=== PATIENT | female | born 1975 | race Two or more races ===

== ENCOUNTER → 2024-11-11 | Outpatient (CLI) | payer BC, SELFPAY ==
[2024-11-11 07:49] LABS: Collection Type, Urine Clean Catch
[2024-11-11 08:20] LABS: Basophils % (Auto) 1 % (0-2.5); Eosinophils # (Auto) 0.1 Thou/mm3 (0.0-0.5); Eosinophils % (Auto) 2 % (0-10); Hematocrit 40.2 % (36.0-46.0); Hemoglobin 14.1 g/dL (12.0-16.0); Immature Granulocytes % (Auto) 0 % (0-0); Immature Granulocytes Auto 0.02 Thou/mm3 (0.00-0.00); Lymphocytes # (Auto) 1.7 Thou/mm3 (1.0-4.8); Lymphocytes % (Auto) 24 % (10-50); Mean Corpuscular HGB Conc 35.1 g/dl (31.0-37.0); Mean Corpuscular Hemoglobin 30.5 pg (25.0-35.0); Mean Corpuscular Volume 87 fL (80-100); Monocytes # (Auto) 0.5 Thou/mm3 (0.0-0.8); Monocytes % (Auto) 7 % (0-12); Neutrophils # (Auto) 4.7 Thou/mm3 (1.8-7.7); Neutrophils % (Auto) 66 % (37-80); Nucleated Red Blood Cell % 0 /100 WBC (0); Platelet Count 305 Thou/mm3 (140-440); RDW Standard Deviation 37.9 fL (36.4-46.3); Red Blood Count 4.62 Miln/mm3 (4.00-5.20); White Blood Count 7.1 Thou/mm3 (3.6-11.0)
[2024-11-11 08:20] LABS: Bacteria,Urine 3+; Bilirubin,Urine Negative (Negative); Blood,Urine 2+ (Negative); Color,Urine Yellow (Lt Yel-Yel); Glucose, Urine Negative (Negative); Ketones,Urine Negative (Negative); Leukocyte Esterase,Urine Positive (Negative); Nitrite,Urine Negative (Negative); PH,Urine 5.5 (5.0-7.0); Protein,Urine Trace (Neg - Trace); RBC,Urine 9 /hpf (0-3); Specific Gravity,Urine 1.024 (1.001-1.035); Squamous Epithelial Cell,Urine 12 /hpf (0-5); Urobilinogen,Urine Negative mg/dL (0.0-1.0); WBC,Urine 18 /hpf (0-5)
[2024-11-11 08:29] LABS: Ferritin 9 ng/mL (7.3-270.7); Iron 68 mcg/dL (50-170); Percent Iron Saturation 19 % (20-55); Total Iron Binding Capacity 343 mcg/dL (250-425); Unsaturated Iron Binding 275 (225-295)
[2024-11-11 08:32] LABS: Vitamin B12 363 pg/mL (211-911); Vitamin D 25 Hydroxy Total 8.4 ng/mL (7.3-40.2)
[2024-11-11 08:42] LABS: Alanine Aminotransferase 9 U/L (10-49); Albumin, Serum 4.2 gm/dL (3.5-5.0); Albumin/Globulin Ratio 1.4 (1.2-2.2); Alkaline Phosphatase 68 U/L (46-116); Anion Gap 10 (7-16); BUN/Creatinine Ratio 11 Ratio (12-20); Bilirubin,Total 0.7 mg/dL (0.3-1.2); Blood Urea Nitrogen 9 mg/dL (9-23); Calcium 8.9 mg/dL (8.3-10.6); Calcium (Corrected) 8.9 mg/dL (8.5-10.1); Cardiac Risk Estimate 6.2 RATIO (3.7-5.6); Chloride 104 mMol/L (98-107); Cholesterol 320 mg/dL (132-200); Creatinine (Component) 0.8 mg/dL (0.6-1.3); Globulin 2.9 gm/dL (2.3-3.5); Glucose 93 mg/dL (74-106); HDL Cholesterol 52 mg/dL (40-60); LDL Cholesterol,Calculated 236 mg/dL (0-130); Osmolality,Calculated 278 (275-295); Potassium 3.7 mMol/L (3.4-5.1); Sodium 140 mMol/L (136-145); Total Protein 7.1 gm/dL (5.7-8.2); Triglycerides 162 mg/dL (30-150); eGFR > 60 See Note
[2024-11-11 08:51] LABS: Clarity,Urine Hazy (Clear/Hazy)
[2024-11-11 11:59] LABS: Cocci Serology, IgM Negative (Negative)
[2024-11-13 14:04] LABS: Cocci Serology, IgG Negative (Negative)
[2024-11-16 07:15] LABS: ANA Pattern NUCLEAR, SPECKLED; ANA Screen, IFA POSITIVE (NEGATIVE); Lyme Antibody Screen <0.90 INDEX
== END | disposition home or self-care (01) ==
LOC: COPL 06:40
PROVIDERS: PCP Family Medicine; Referring Provider Family Medicine; Visit Provider Family Medicine
DX: R53.82 Chronic fatigue, unspecified (principal)
CPT/HCPCS: 36415; 80053; 80061; 81001; 82306; 82607; 82728; 83540; 83550; 84443; 85025; 86038; 86331; 86618; 86635

== ENCOUNTER 2024-12-15 21:55 | Emergency (ER) | payer BC, SELFPAY ==
[2024-12-15 22:01] VITALS: BP 144/96; PULSE 110; RESP 18; TEMP 36.7; O2SAT 98
[2024-12-15 22:02] VITALS: BMI 29.9
[2024-12-15 22:07] VITALS: PULSE 110; RESP 18; O2SAT 98; BMI 29.9
--- NOTE | 2024-12-15 22:08 | EDRME_ITS ---
Rapid Medical Screening Exam [facility] Arrival date/time: 12/15/24 21:55 Chief Complaint: Chest Pain Vital signs: Vital Signs Temperature 98.0 F 12/15/24 22:01 Pulse Rate 110 H 12/15/24 22:01 Respiratory Rate 18 12/15/24 22:01 Blood Pressure 144/96 H 12/15/24 22:01 Pulse Oximetry (%) 98 12/15/24 22:01 Oxygen Delivery Method Room Air 12/15/24 22:01 [facility] Narrative: 49-year-old female with a remote history of DE and cardiac stenting in 2015. She is brought in by EMS for palpitations and shortness of breath that started 30 minutes prior to arrival. She also notes she has had some bilateral, ankle swelling over the last 3 to 4 days. Denies any syncope. No fevers or chills. No abdominal pain, nausea, vomiting. She states she does not take any medications. Work up intiated, medical screening exam complete.
--- NOTE | 2024-12-15 22:09 | XR_ITS ---
Examination: AP chest single view TECHNIQUE: AP portable upright chest single view Date and time: December 15, 2024 10:21 PM INDICATIONS: Cardiac palpitations chest pain shortness of breath today. FINDINGS: Normal heart size. Lungs are clear. The osseous structures are intact IMPRESSION: No active disease.
--- NOTE | 2024-12-15 22:23 | PD.EDCHEST ---
ED Chest Pain RME/HPI General Chief Complaint: Chest Pain Stated Complaint: PALPITATIONS Time Seen by Provider: 12/15/24 22:24 Arrival date/time: 12/15/24 21:55 RME / HPI RME / HPI narrative: 49-year-old female with a remote history of AK and cardiac stenting in 2016. She is brought in by EMS for palpitations and shortness of breath that started 30 minutes prior to arrival. She also notes she has had some bilateral, ankle swelling over the last 3 to 4 days. Denies any syncope. No fevers or chills. No abdominal pain, nausea, vomiting. She states she does not take any medications. Work up intiated, medical screening exam complete. ------- This section includes all my notes and documentations, including HPI, PE, and ED course. Damian Carrasco MD HPI: 49yo female with a history of AK s/p stent placement (2015) RAVIN from home presents to the ED for complaints of palpitations and chest pressure that started just prior to arrival. Patient woke up having palpitations and chest pressure. She has chronic nausea. No vomiting, cough, or abdominal pain. Patient took cayenne pepper which improved her chest pain. No other complaints reported. ROS: All negative except as documented in HPI. Physical Exam: General: Alert and oriented. Appears anxious. Eyes: Conjunctivae and lids clear. ENT: No nasal congestion. Neck: Supple. Heart: RRR. Lungs: No respiratory distress. Good air movement. No rhonchi, wheezing, rales. Abdomen: Soft and nontender. Normal bowel sounds. No distension. No rebound or guarding. Back: No CVA tenderness. Skin: Warm and dry. Neuro: Alert and oriented X 3. I reviewed EMS notes. I reviewed all diagnostic test results. My interpretation of the EKG is NSR with nonspecific ST-T changes. My interpretation of the chest x-ray is NAD. Blood tests remarkable for Magnesium 1.5. Urine tests unremarkable. At this point, diagnoses include anxiety and hypomagnesemia. I ordered ASA 324 mg, oral metoprolol 25 mg, and MgSO4 1 gram IV. Patient agreed only to MgSO4 1 gram IV. Discussed potential benefits and risks. Patient understood. She still declined ASA and metoprolol. Patient remained stable. Recommended more outpatient cardiac workup Based on my best medical judgment, made decision no further evaluation or treatment indicated at this time. Patient understands and agrees to the discharge instructions customized and printed, see below. Discharge instructions from Dr. Carrasco: 1. After extensive evaluation, there is no life-threatening condition. Such as heart attack or pulmonary embolism (blood clots in your lungs) or pneumothorax (collapsed lung). 2. Your symptoms may be due to underlying stress or anxiety or nerves. This is fairly common. 3. Your magnesium level was low today. Increase food rich in magnesium, such as green and leafy vegetables and almonds and cashews and peanuts. 4. See a private doctor on 12/17/2024. Ask to review all test results and official radiology reports, to make sure you receive all necessary follow-ups and monitoring. To make sure there is no serious underlying heart condition, ask to help you get more tests for your heart that cannot be done here in the ER. Such as Holter Monitor (cardiac monitoring at home from a day to even a month), heart stress test (on treadmill or with medication), echocardiogram (imaging of your heart structures), heart catherization (checking for blockages in your heart arteries), and a referral to see a Mechanical Integrity Engineer. 5. Seek immediate medical care with worsening or with any concerns. Damian Carrasco MD Related Data Home Medications ?Medication ?Instructions ?Recorded ?Confirmed aspirin 325 mg tablet 325 mg PO QDAY #0 tabs 01/26/16 07/15/23 carvedilol 3.125 mg tablet (Coreg) 3.125 mg PO BID #0 tabs 01/26/16 07/15/23 prasugrel HCl 10 mg tablet 10 mg PO QDAY #0 tabs 01/26/16 07/15/23 (Effient) Allergies Allergy/AdvReac Type Severity Reaction Status Date / Time atorvastatin Allergy Intermediate Anaphylaxis Verified 12/15/24 22:03 Review of Systems Review of Systems Systems Reviewed: All systems reviewed, normal except as documented Past Medical History Past Medical History CARDIAC: Positive Myocardial Infarction; Negative Congestive Heart Failure RESPIRATORY: Negative Chronic Obstructive Pulmonary Disease (COPD) GENITOURINARY: Negative Renal Disease ENDOCRINE: Negative Diabetes Mellitus Type 1 or Diabetes Mellitus Type 2 Surgical History SURGICAL: Positive Coronary Stent (2016) Social History SMOKING STATUS: Never smoker SUBSTANCE USE: does not use ED Exam Narrative Physical exam: As noted in HPI. Course Course Course Narrative: CXR is ordered for determining the etiology of chest pain. Quality Measures none Orders Category Date Time Status EKG (ED ONLY) *Do not use* NOW Care 12/15/24 22:27 Completed Saline [Insert IV] NOW Care 12/15/24 22:25 Completed Straight [In and Out Catheter] X1 Care 12/15/24 22:25 Completed EKG (ED Only) Stat Exams 12/15/24 22:27 Draft XR chest 1V Stat Exams 12/15/24 22:09 Completed Alcohol, Blood Medical Stat Lab 12/15/24 22:25 Completed BNP [B-Type Natriuretic Peptide] Stat Lab 12/15/24 22:25 Completed Bilirubin,Direct Stat Lab 12/15/24 22:25 Completed CBC [CBC] Stat Lab 12/15/24 22:25 Completed CMP [Comprehensive Metabolic Panel] Stat Lab 12/15/24 22:25 Completed D-Dimer Stat Lab 12/15/24 23:22 Completed Drug Screen,Urine Stat Lab 12/15/24 22:20 Completed Free T4 (Free Thyroxine) Stat Lab 12/15/24 22:25 Completed HCG,Qualitative Serum Stat Lab 12/15/24 22:25 Completed Magnesium Stat Lab 12/15/24 22:25 Completed TSH [Thyroid Stimulating Hormone] Stat Lab 12/15/24 22:25 Completed Troponin I Stat Lab 12/15/24 22:25 Completed UA, C/S IF [Urinalysis, C/S if Indicated] Stat Lab 12/15/24 22:20 Completed Aspirin Chew Med 12/15/24 22:25 Discontinued 324 mg PO X1 ONE Magnesium Sulfate 1 gm Ivpb [Magnesium Sulfate Ivpb] Med 12/15/24 23:16 Discontinued 1 gm in 100 ml IV X1 Metoprolol Tartrate [Lopressor] Med 12/15/24 22:25 Discontinued 25 mg PO X1 ONE Vital Signs Vital signs: Vital Signs Temperature 98.0 F 12/15/24 22:01 Pulse Rate 110 H 12/15/24 22:01 Respiratory Rate 18 12/15/24 22:01 Blood Pressure 144/96 H 12/15/24 22:01 Pulse Oximetry (%) 98 12/15/24 22:01 Oxygen Delivery Method Room Air 12/15/24 22:01 Chest Pain MDM Narrative MDM Narrative:: 49yo female with a history of AK s/p stent placement (2015) BIBA from home presents to the ED for complaints of palpitations and chest pressure that started just prior to arrival. Patient woke up having palpitations and chest pressure. She has chronic nausea. No vomiting, cough, or abdominal pain. Patient took cayenne pepper which improved her chest pain. No other complaints reported. Patient data External records reviewed:: [facility] previous records (Per chart review, patient was seen here on 07/15/23 for mild dehydration.) and EMS form Clinical information provided by:: patient Social determinants that could affect healthcare access:: none Patient has the following chronic illnesses:: none How is presenting disease/condition affected by chronic disease/condition?: no chronic disease Evaluation data The following diagnostics were reviewed and interpreted by me:: lab results, radiology exam(s) and EKG tracing(s) (My interpretation of the EKG is: Sinus rhythm (87 bpm) with nonspecific ST-T changes. Damian Carrasco MD) Lab and/or radiology exams considered but not ordered:: none Interpretation Summary: I reviewed all diagnostic test results. My interpretation of the EKG is NSR with nonspecific ST-T changes. My interpretation of the chest x-ray is NAD. Blood tests remarkable for Magnesium 1.5. Urine tests unremarkable. Medications / Prescriptions Medications or Prescriptions considered but not ordered:: none Medication administrations:: Medication Administration History Discontinued Medications Aspirin (Aspirin 81 Mg Chew) 324 mg PO X1 ONE Stop: 12/15/24 22:26 Last Admin: 12/15/24 22:40 Dose: Not Given Documented By: CB Non-Admin Reason: Patient Refused Magnesium Sulfate/Dextrose (Magnesium Sulfate Ivpb) 1 gm in 100 mls @ 100 mls/hr IV X1 ONE Stop: 12/16/24 00:15 Last Infusion: 12/16/24 00:41 Dose: Infused Documented By: Admin: 12/15/24 23:32 Dose: 100 mls/hr Documented By: JOYCE Metoprolol Tartrate (Metoprolol Tartrate 25 Mg Tablet) 25 mg PO X1 ONE Stop: 12/15/24 22:26 Last Admin: 12/15/24 22:41 Dose: Not Given Documented By: CB Non-Admin Reason: Patient Refused I ordered ASA 324 mg, oral metoprolol 25 mg, and MgSO4 1 gram IV. Patient agreed only to MgSO4 1 gram IV. Discussed potential benefits and risks. Patient understood. She still declined ASA and metoprolol. Consultations Consultation(s) initiated? (list below): No Diagnosis Chest Pain Differential Diagnosis: pneumothorax, stable angina, unstable angina pectoris, atypical chest pain, st elevation myocardial infarction, costochondritis and other (Anxiety) Most likely diagnosis given after review of the tests above:: Anxiety Admission Indicated Admission indicated?: not indicated Explain why admission is indicated or not indicated:: With significant improvement and no condition needing emergent intervention, there was no indication for admission. Admission Request Was there a request for admission?: No Disposition Plan Disposition Plan: Discharge Discharge Attestation Discharge Attestation: The patient and all family members were given an opportunity to ask questions and understood the discharge instructions. Discharge instructions specifically effects, indications for sooner follow up or return to the emergency department, and the expected course of current diagnosis. Patient condition: Stable Discharge Plan Plan Patient Disposition: HOME (Self Care) Prescriptions/Referrals Prescriptions/Med Rec: No Action aspirin 325 MG tablet 325 mg PO QDAY Qty: 0 carvedilol [Coreg] 3.125 MG tablet 3.125 mg PO BID Qty: 0 prasugrel HCl [Effient] 10 MG tablet 10 mg PO QDAY Qty: 0 Referrals: No Primary/Family,Physician [Primary Care Provider] - In 1 week Problem List Clinical Impression: Palpitations Patient/Caregiver Discharge Instructions Discharge Activity: activity as tolerated Education Materials: ED Anxiety Reaction, ED Palpitations, ED Panic Attack Additional Instructions: Discharge instructions from Dr. Carrasco: 1. After extensive evaluation, there is no life-threatening condition.? Such as heart attack or pulmonary embolism (blood clots in your lungs) or pneumothorax (collapsed lung). 2. Your symptoms may be due to underlying stress or anxiety or nerves.? This is fairly common. 3. Your magnesium level was low today. Increase food rich in magnesium, such as green and leafy vegetables and almonds and cashews and peanuts. 4. See a private doctor on 12/17/2024. Ask to review all test results and official radiology reports, to make sure you receive all necessary follow-ups and monitoring. To make sure there is no serious underlying heart condition, ask to help you get more tests for your heart that cannot be done here in the ER.? Such as Holter Monitor (cardiac monitoring at home from a day to even a month), heart stress test (on treadmill or with medication), echocardiogram (imaging of your heart structures), heart catherization (checking for blockages in your heart arteries), and a referral to see a Mechanical Integrity Engineer. 5. Seek immediate medical care with worsening or with any concerns.?? Print Language: [place] Stand Alone Forms: Catherine Award Info., Patient Portal Info Letter
--- NOTE | 2024-12-15 22:27 | EKG_ITS ---
[facility] Test Date: 2024-12-15 Pat Name: JERRY ANGEL Department: Room: - Gender: Female Supervisor [employer]: : 1975 Requested By: Damian Melo Order Number: [id number] Reading MD: Damian Melo Measurements Intervals [place] Rate: 87 P: 26 MA: 176 QRS: 26 QRSD: 88 T: 44 QT: 379 QTc: 458 Interpretive Statements SINUS RHYTHM WITH SINUS ARRHYTHMIA LOW QRS VOLTAGE IN PRECORDIAL LEADS [QRS DEFLECTION < 1.0 mV IN CHEST LEADS] Compared to ECG 07/15/2023 13:32:12 Low QRS voltage now present T-wave abnormality no longer present /store/[id number].pdf
[2024-12-15 22:29] LABS: Collection Type, Urine Voided
[2024-12-15 22:38] LABS: Basophils # (Auto) 0.1 Thou/mm3 (0.0-0.2); Basophils % (Auto) 1 % (0-2.5); Eosinophils # (Auto) 0.3 Thou/mm3 (0.0-0.5); Eosinophils % (Auto) 4 % (0-10); Hematocrit 40.5 % (36.0-46.0); Hemoglobin 14.4 g/dL (12.0-16.0); Immature Granulocytes Auto 0.01 Thou/mm3 (0.00-0.00); Lymphocytes # (Auto) 3.2 Thou/mm3 (1.0-4.8); Lymphocytes % (Auto) 40 % (10-50); Mean Corpuscular HGB Conc 35.6 g/dl (31.0-37.0); Mean Corpuscular Hemoglobin 30.3 pg (25.0-35.0); Mean Corpuscular Volume 85 fL (80-100); Monocytes # (Auto) 0.8 Thou/mm3 (0.0-0.8); Monocytes % (Auto) 10 % (0-12); Neutrophils # (Auto) 3.7 Thou/mm3 (1.8-7.7); Neutrophils % (Auto) 46 % (37-80); Nucleated Red Blood Cell # 0.00 Thou/mm3 (0.00-0.00); Nucleated Red Blood Cell % 0 /100 WBC (0); Platelet Count 298 Thou/mm3 (140-440); RDW Standard Deviation 36.2 fL (36.4-46.3); Red Blood Count 4.75 Miln/mm3 (4.00-5.20); White Blood Count 8.0 Thou/mm3 (3.6-11.0)
[2024-12-15 22:47] LABS: Bilirubin,Urine Negative (Negative); Blood,Urine Negative (Negative); Clarity,Urine Clear (Clear/Hazy); Color,Urine Colorless (Lt Yel-Yel); Culture Indicated,Urine Not Indicated; Glucose, Urine Negative (Negative); Ketones,Urine Negative (Negative); Leukocyte Esterase,Urine Positive (Negative); Nitrite,Urine Negative (Negative); PH,Urine 6.5 (5.0-7.0); Protein,Urine Negative (Neg - Trace); RBC,Urine < 1 /hpf (0-3); Specific Gravity,Urine 1.002 (1.001-1.035); Squamous Epithelial Cell,Urine < 1 /hpf (0-5); Urobilinogen,Urine Negative mg/dL (0.0-1.0); WBC,Urine < 1 /hpf (0-5)
[2024-12-15 22:53] LABS: Amphetamine/Methamp Scrn,U Negative (Negative); Barbiturate Screen,Urine Negative (Negative); Benzodiazepines Screen,Urine Negative (Negative); Benzoylecgonine Screen, Ur Negative (Negative); Fentanyl Screen,Urine Negative (Negative); Opiate Screen,Urine Negative (Negative); THC Screen,Urine Negative (Negative)
[2024-12-15 22:58] LABS: HCG,Qualitative Serum Negative
[2024-12-15 23:02] LABS: B-Type Natriuretic Peptide < 20 pg/mL (0-100)
[2024-12-15 23:09] LABS: Alanine Aminotransferase < 7 U/L (10-49); Albumin, Serum 4.2 gm/dL (3.5-5.0); Albumin/Globulin Ratio 1.3 (1.2-2.2); Alcohol, Blood Medical < 3.0 mg/dL (0-10.0); Alkaline Phosphatase 71 U/L (46-116); Anion Gap 11 (7-16); Aspartate Amino Transferase 13 U/L (0-34); BUN/Creatinine Ratio 15 Ratio (12-20); Bilirubin,Direct 0.1 mg/dL (0.0-0.3); Bilirubin,Total 0.6 mg/dL (0.3-1.2); Blood Urea Nitrogen 12 mg/dL (9-23); Calcium 8.8 mg/dL (8.3-10.6); Calcium (Corrected) 8.8 mg/dL (8.5-10.1); Carbon Dioxide 20.8 mMol/L (20.0-31.0); Chloride 107 mMol/L (98-107); Creatinine (Component) 0.8 mg/dL (0.6-1.3); Estimated Creatinine Clearance 90.8 mL/min (>60); Free T4 (Free Thyroxine) 1.16 ng/dL (0.89-1.76); Globulin 3.3 gm/dL (2.3-3.5); Glucose 104 mg/dL (74-106); Magnesium 1.5 mg/dL (1.6-2.6); Osmolality,Calculated 277 (275-295); Potassium 3.7 mMol/L (3.4-5.1); Sodium 139 mMol/L (136-145); Thyroid Stimulating Hormone 7.94 uIU/mL (0.55-4.78); Total Protein 7.5 gm/dL (5.7-8.2); Troponin I < 0.002 ng/mL (0.0-0.045); eGFR > 60 See Note
[2024-12-15 23:35] VITALS: BP 132/85; PULSE 85; RESP 13; TEMP 36.8; O2SAT 97
[2024-12-15 23:59] LABS: D-Dimer < 250 ng/mL (<600)
[2024-12-16 00:41] VITALS: BP 114/81; PULSE 76; RESP 16; TEMP 37; O2SAT 95
== END 2024-12-16 00:42 | disposition home or self-care (01) ==
PROVIDERS: Physician Assistant Medical; Emergency Provider Emergency Medicine
DX: R00.2 Palpitations (principal)
CPT/HCPCS: 36415; 71045; 80053; 80307; 80320; 81001; 82248; 83735; 83880; 84439; 84443; 84484; 84703; 85025; 85379; 93005; 96365; 99284; J3475; G0480

== ENCOUNTER → 2025-01-11 | Outpatient (CLI) | payer BC, SELFPAY ==
[2025-01-11 09:58] LABS: Basophils # (Auto) 0.1 Thou/mm3 (0.0-0.2); Basophils % (Auto) 1 % (0-2.5); Eosinophils # (Auto) 0.2 Thou/mm3 (0.0-0.5); Eosinophils % (Auto) 3 % (0-10); Hematocrit 41.1 % (36.0-46.0); Hemoglobin 14.3 g/dL (12.0-16.0); Immature Granulocytes Auto 0.02 Thou/mm3 (0.00-0.00); Lymphocytes # (Auto) 2.1 Thou/mm3 (1.0-4.8); Lymphocytes % (Auto) 31 % (10-50); Mean Corpuscular HGB Conc 34.8 g/dl (31.0-37.0); Mean Corpuscular Hemoglobin 31.0 pg (25.0-35.0); Mean Corpuscular Volume 89 fL (80-100); Monocytes # (Auto) 0.5 Thou/mm3 (0.0-0.8); Monocytes % (Auto) 8 % (0-12); Neutrophils # (Auto) 4.0 Thou/mm3 (1.8-7.7); Neutrophils % (Auto) 58 % (37-80); Nucleated Red Blood Cell # 0.00 Thou/mm3 (0.00-0.00); Nucleated Red Blood Cell % 0 /100 WBC (0); Platelet Count 219 Thou/mm3 (140-440); RDW Standard Deviation 37.8 fL (36.4-46.3); Red Blood Count 4.62 Miln/mm3 (4.00-5.20); White Blood Count 7.0 Thou/mm3 (3.6-11.0)
[2025-01-11 10:26] LABS: Vitamin B12 306 pg/mL (211-911); Vitamin D 25 Hydroxy Total 7.2 ng/mL (7.3-40.2)
[2025-01-11 10:35] LABS: Glucose Estimated Average 105 mg/dL (80-131); Hemoglobin A1C 5.3 % Hgb (4.8-6.0)
[2025-01-11 13:17] LABS: Alanine Aminotransferase < 7 U/L (10-49); Albumin, Serum 4.1 gm/dL (3.5-5.0); Albumin/Globulin Ratio 1.4 (1.2-2.2); Alkaline Phosphatase 70 U/L (46-116); Anion Gap 10 (7-16); Aspartate Amino Transferase 13 U/L (0-34); BUN/Creatinine Ratio 9 Ratio (12-20); Bilirubin,Total 0.5 mg/dL (0.3-1.2); Blood Urea Nitrogen 9 mg/dL (9-23); Calcium 9.0 mg/dL (8.3-10.6); Calcium (Corrected) 9.0 mg/dL (8.5-10.1); Carbon Dioxide 25.4 mMol/L (20.0-31.0); Cardiac Risk Estimate 6.7 RATIO (3.7-5.6); Chloride 106 mMol/L (98-107); Cholesterol 337 mg/dL (132-200); Creatinine (Component) 1.0 mg/dL (0.6-1.3); Free T4 (Free Thyroxine) 1.15 ng/dL (0.89-1.76); Globulin 2.9 gm/dL (2.3-3.5); Glucose 93 mg/dL (74-106); HDL Cholesterol 50 mg/dL (40-60); LDL Cholesterol,Calculated 253 mg/dL (0-130); Magnesium 1.4 mg/dL (1.6-2.6); Osmolality,Calculated 279 (275-295); Potassium 3.4 mMol/L (3.4-5.1); Sodium 141 mMol/L (136-145); Thyroid Stimulating Hormone 1.81 uIU/mL (0.55-4.78); Total Protein 7.0 gm/dL (5.7-8.2); Triglycerides 171 mg/dL (30-150); eGFR > 60 See Note
== END | disposition home or self-care (01) ==
PROVIDERS: PCP Family Medicine; Referring Provider Family Medicine; Visit Provider Family Medicine
DX: R53.83 Other fatigue (principal)
CPT/HCPCS: 36415; 80053; 80061; 82306; 82607; 83036; 83735; 84439; 84443; 85025

== ENCOUNTER → 2025-01-22 | Outpatient (CLI) | payer BC, SELFPAY ==
[2025-01-22 07:36] LABS: Collection Type, Urine Clean Catch
[2025-01-22 08:18] LABS: Basophils # (Auto) 0.0 Thou/mm3 (0.0-0.2); Basophils % (Auto) 0 % (0-2.5); Eosinophils # (Auto) 0.2 Thou/mm3 (0.0-0.5); Eosinophils % (Auto) 3 % (0-10); Hematocrit 41.6 % (36.0-46.0); Hemoglobin 14.0 g/dL (12.0-16.0); Immature Granulocytes Auto 0.01 Thou/mm3 (0.00-0.00); Lymphocytes # (Auto) 1.7 Thou/mm3 (1.0-4.8); Lymphocytes % (Auto) 32 % (10-50); Mean Corpuscular HGB Conc 33.7 g/dl (31.0-37.0); Mean Corpuscular Hemoglobin 30.2 pg (25.0-35.0); Mean Corpuscular Volume 90 fL (80-100); Monocytes # (Auto) 0.5 Thou/mm3 (0.0-0.8); Monocytes % (Auto) 9 % (0-12); Neutrophils # (Auto) 3.0 Thou/mm3 (1.8-7.7); Neutrophils % (Auto) 56 % (37-80); Nucleated Red Blood Cell # 0.00 Thou/mm3 (0.00-0.00); Nucleated Red Blood Cell % 0 /100 WBC (0); Platelet Count 296 Thou/mm3 (140-440); RDW Standard Deviation 39.1 fL (36.4-46.3); Red Blood Count 4.64 Miln/mm3 (4.00-5.20); White Blood Count 5.4 Thou/mm3 (3.6-11.0)
[2025-01-22 08:24] LABS: Glucose Estimated Average 105 mg/dL (80-131); Hemoglobin A1C 5.3 % Hgb (4.8-6.0)
[2025-01-22 08:32] LABS: Bilirubin,Urine Negative (Negative); Blood,Urine 2+ (Negative); Color,Urine Yellow (Lt Yel-Yel); Glucose, Urine Negative (Negative); Ketones,Urine Negative (Negative); Leukocyte Esterase,Urine Positive (Negative); Nitrite,Urine Negative (Negative); PH,Urine 5.5 (5.0-7.0); Protein,Urine Negative (Neg - Trace); RBC,Urine 10 /hpf (0-3); Specific Gravity,Urine 1.025 (1.001-1.035); Squamous Epithelial Cell,Urine 9 /hpf (0-5); Urobilinogen,Urine Negative mg/dL (0.0-1.0); WBC,Urine 7 /hpf (0-5)
[2025-01-22 08:36] LABS: Folate 17.48 ng/mL (>5.38); Vitamin B12 340 pg/mL (211-911); Vitamin D 25 Hydroxy Total 10.1 ng/mL (7.3-40.2)
[2025-01-22 09:09] LABS: Clarity,Urine Hazy (Clear/Hazy)
[2025-01-22 09:10] LABS: Alanine Aminotransferase < 7 U/L (10-49); Albumin, Serum 4.3 gm/dL (3.5-5.0); Albumin/Globulin Ratio 1.3 (1.2-2.2); Alkaline Phosphatase 74 U/L (46-116); Anion Gap 10 (7-16); Aspartate Amino Transferase 13 U/L (0-34); BUN/Creatinine Ratio 11 Ratio (12-20); Bilirubin,Total 0.7 mg/dL (0.3-1.2); Blood Urea Nitrogen 9 mg/dL (9-23); Calcium 9.3 mg/dL (8.3-10.6); Calcium (Corrected) 9.3 mg/dL (8.5-10.1); Carbon Dioxide 25.5 mMol/L (20.0-31.0); Chloride 103 mMol/L (98-107); Creatinine (Component) 0.8 mg/dL (0.6-1.3); Free T4 (Free Thyroxine) 1.15 ng/dL (0.89-1.76); Globulin 3.3 gm/dL (2.3-3.5); Glucose 90 mg/dL (74-106); Osmolality,Calculated 274 (275-295); Potassium 4.0 mMol/L (3.4-5.1); Sodium 138 mMol/L (136-145); Thyroid Stimulating Hormone 1.89 uIU/mL (0.55-4.78); Total Protein 7.6 gm/dL (5.7-8.2); Uric Acid 4.9 mg/dL (3.1-7.8); eGFR > 60 See Note
[2025-01-22 09:43] LABS: Sed Rate (ESR) 22 mm/hr (0-20)
[2025-01-22 09:55] LABS: C-Reactive Protein < 0.5 mg/dL (0.0-0.9); Free T3 3.3 pg/mL (2.3-4.2)
[2025-01-22 15:56] LABS: RA Screen Negative (Negative)
[2025-01-27 06:33] LABS: ANA Pattern NUCLEAR, SPECKLED; ANA Screen, IFA POSITIVE (NEGATIVE); ANA Titer 1:320 titer
== END | disposition home or self-care (01) ==
LOC: COPL 06:41
PROVIDERS: PCP Nurse Practitioner; Referring Provider Nurse Practitioner; Visit Provider Nurse Practitioner
DX: Z13.1 Encounter for screening for diabetes mellitus (principal); R53.83 Other fatigue; M25.50 Pain in unspecified joint
CPT/HCPCS: 36415; 80053; 81001; 82306; 82607; 82746; 83036; 84439; 84443; 84481; 84550; 85025; 85652; 86038; 86140; 86430

== ENCOUNTER → 2025-03-29 | Outpatient (CLI) | payer BC, SELFPAY ==
--- NOTE | 2025-03-29 15:35 | XR_ITS ---
Examination: Bilateral hands, 6 views. Technique: AP, Oblique, Lateral each hand total 6 views Date and time of exam: March 29, 2025, 1557 hours INDICATIONS: Joint pain, months,, family history, mother, brother rheumatoid arthritis Findings: Mild extra-articular bone demineralization No fracture or dislocation involving either hand No erosive or other significant arthritic change involving either hand No opaque foreign bodies IMPRESSION: No erosive or other significant arthritic change
--- NOTE | 2025-03-29 15:35 | XR_ITS ---
Examination: Foot bilateral, 6 views Technique: AP, oblique, lateral views of each foot total 6 views Date and time of exam: March 29, 2025, 1557 hours INDICATIONS: Foot pain months, family history of rheumatoid arthritis, mother brother FINDINGS: Mild osteopenia. 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
[2025-03-29 17:05] LABS: Misc Send Out* See Sep Rpt
[2025-03-29 17:37] LABS: Collection Type, Urine Clean Catch
[2025-03-29 18:04] LABS: Bilirubin,Urine Negative (Negative); Blood,Urine 2+ (Negative); Clarity,Urine Clear (Clear/Hazy); Color,Urine Lt-Yellow (Lt Yel-Yel); Glucose, Urine Negative (Negative); Ketones,Urine Negative (Negative); Leukocyte Esterase,Urine Positive (Negative); Nitrite,Urine Negative (Negative); PH,Urine 5.5 (5.0-7.0); Protein,Urine Negative (Neg - Trace); RBC,Urine 6 /hpf (0-3); Specific Gravity,Urine 1.021 (1.001-1.035); Squamous Epithelial Cell,Urine 2 /hpf (0-5); Urobilinogen,Urine Negative mg/dL (0.0-1.0); WBC,Urine 4 /hpf (0-5)
[2025-03-29 18:05] LABS: Basophils # (Auto) 0.0 Thou/mm3 (0.0-0.2); Basophils % (Auto) 1 % (0-2.5); Eosinophils # (Auto) 0.2 Thou/mm3 (0.0-0.5); Eosinophils % (Auto) 2 % (0-10); Hematocrit 41.1 % (36.0-46.0); Hemoglobin 13.7 g/dL (12.0-16.0); Immature Granulocytes Auto 0.02 Thou/mm3 (0.00-0.00); Lymphocytes # (Auto) 2.4 Thou/mm3 (1.0-4.8); Lymphocytes % (Auto) 31 % (10-50); Mean Corpuscular HGB Conc 33.3 g/dl (31.0-37.0); Mean Corpuscular Hemoglobin 29.7 pg (25.0-35.0); Mean Corpuscular Volume 89 fL (80-100); Monocytes # (Auto) 0.7 Thou/mm3 (0.0-0.8); Monocytes % (Auto) 9 % (0-12); Neutrophils # (Auto) 4.4 Thou/mm3 (1.8-7.7); Neutrophils % (Auto) 58 % (37-80); Nucleated Red Blood Cell # 0.00 Thou/mm3 (0.00-0.00); Nucleated Red Blood Cell % 0 /100 WBC (0); Platelet Count 331 Thou/mm3 (140-440); RDW Standard Deviation 37.4 fL (36.4-46.3); Red Blood Count 4.62 Miln/mm3 (4.00-5.20); White Blood Count 7.6 Thou/mm3 (3.6-11.0)
[2025-03-29 18:58] LABS: Sed Rate (ESR) 27 mm/hr (0-20)
[2025-03-29 20:49] LABS: Alanine Aminotransferase < 7 U/L (10-49); Aspartate Amino Transferase 15 U/L (0-34); C-Reactive Protein < 0.5 mg/dL (0.0-0.9); Creatine Kinase 57 U/L (34-171); Creatinine (Component) 0.9 mg/dL (0.6-1.3); Hepatitis B Surface Antigen Non Reactive (Non React); Uric Acid 4.9 mg/dL (3.1-7.8); eGFR > 60 See Note
[2025-03-30 14:28] LABS: RA Screen Negative (Negative)
[2025-04-04 22:04] LABS: Cardiolipin Ab IgA 6.4 APL-U/mL; Cardiolipin Ab IgG <2.0 GPL-U/mL; HCV RNA, PCR <15 NOT DETECTED IU/mL; Sjogren's antibody (SS-A) <1.0 NEG AI (<1.0 NEGATIVE); Sm Antibody <1.0 NEG AI (<1.0 NEGATIVE)
[2025-04-05 07:05] LABS: ANA Pattern NUCLEAR, SPECKLED; ANA Screen, IFA POSITIVE (NEGATIVE); ANA Titer 1:320 titer; B2-Glycoprotein I Ab IgA 5.2 U/mL; B2-Glycoprotein I Ab IgG <2.0 U/mL; B2-Glycoprotein I Ab IgM 2.5 U/mL; CCP Antibody (IgG)* <16 Units; Cardiolipin Ab IgM 2.9 MPL-U/mL; DNA (ds) Antibody* 57 IU/mL; HCV RNA, PCR Log IU <1.18 NOT DETECTED Log IU/mL; Phos.Serine Ab IgG <9 U (< OR = 30); Phos.Serine Ab IgM 14 U (< OR = 30); Scl-70 Antibody* <1.0 NEG AI (<1.0 NEGATIVE); Sjogren's Antibody (SS-B) <1.0 NEG AI (<1.0 NEGATIVE); Sm/RNP Antibody <1.0 NEG AI (<1.0 NEGATIVE)
== END | disposition home or self-care (01) ==
LOC: CDIM 15:33 → COPL 16:30
PROVIDERS: PCP Internal Medicine Rheumatology; Referring Provider Internal Medicine Rheumatology; Visit Provider Radiology Diagnostic Radiology
DX: M79.642 Pain in left hand (principal); M79.641 Pain in right hand; M21.612 Bunion of left foot; M21.611 Bunion of right foot; M19.072 Primary osteoarthritis, left ankle and foot; M19.071 Primary osteoarthritis, right ankle and foot; M77.32 Calcaneal spur, left foot; M25.50 Pain in unspecified joint
CPT/HCPCS: 36415; 73130; 73630; 81001; 82550; 82565; 84450; 84460; 84550; 85025; 85652; 86038; 86140; 86146; 86147; 86148; 86200; 86225; 86235; 86430; 87340; 87522

== ENCOUNTER → 2025-04-08 | Outpatient (CLI) | payer BC, SELFPAY ==
[2025-04-08 07:06] LABS: Quantiferon-TB* See Sep Rpt
== END | disposition home or self-care (01) ==
LOC: COPL 06:36
PROVIDERS: PCP Nurse Practitioner; Referring Provider Internal Medicine Rheumatology; Visit Provider Internal Medicine Rheumatology
DX: M25.50 Pain in unspecified joint (principal)
CPT/HCPCS: 86480

== ENCOUNTER 2025-05-04 09:25 | Emergency (ER) | payer BC, SELFPAY ==
--- NOTE | 2025-05-04 09:29 | EKG_ITS ---
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
[2025-05-04 09:33] VITALS: BP 148/95; PULSE 132; RESP 24; TEMP 36.5; O2SAT 97
--- NOTE | 2025-05-04 09:46 | XR_ITS ---
EXAMINATION: AP chest single view TECHNIQUE: AP portable upright chest single view Date and time: May 04, 2025, 0946 hours INDICATIONS: History of myocardial infarct with blurred vision onset today. FINDINGS: Normal heart size No pneumonia or pulmonary edema Prominent osteopenia IMPRESSION: No pneumonia or pulmonary edema
[2025-05-04 09:48] VITALS: BMI 29.9
[2025-05-04 09:50] VITALS: PULSE 116
[2025-05-04 10:00] VITALS: PULSE 109
--- NOTE | 2025-05-04 10:18 | XR_ITS ---
Examination: CT brain head without contrast. 2-D sagittal coronal reconstructions Date and time of exam: April 04, 2025, 10:47 a.m. INDICATIONS: Onset generalized head pain and blurry vision today CTDI: vol (mGy): 45.9 DLP: (mGycm): 887 Technique: Multiple CT axial sections of the brain have been obtained, 5 mm slice thickness. Contrast has not been administered. 2-D sagittal, coronal reconstructions have been obtained Low dose protocols were performed. One or more of the following dose reduction techniques were used; automated exposure control, adjustment of the mA and/or KV according to patient size, use of iterative reconstruction technique. Findings: No significant ventricular enlargement. Significant right maxillary sinus disease Intra-axial or extra-axial hemorrhage density is not seen. No mass effect or midline shift Basal cisterns are not remarkable. Fourth ventricle is midline. Cranial vault intact. Impression: Negative for acute hemorrhage, mass effect or midline shift If symptoms persist, consider brain MRI MRA without contrast follow-up
[2025-05-04 10:26] LABS: Basophils # (Auto) 0.0 Thou/mm3 (0.0-0.2); Basophils % (Auto) 1 % (0-2.5); Eosinophils # (Auto) 0.1 Thou/mm3 (0.0-0.5); Eosinophils % (Auto) 2 % (0-10); Hematocrit 42.6 % (36.0-46.0); Hemoglobin 14.5 g/dL (12.0-16.0); Immature Granulocytes Auto 0.01 Thou/mm3 (0.00-0.00); Lymphocytes # (Auto) 1.3 Thou/mm3 (1.0-4.8); Lymphocytes % (Auto) 22 % (10-50); Mean Corpuscular HGB Conc 34.0 g/dl (31.0-37.0); Mean Corpuscular Hemoglobin 29.9 pg (25.0-35.0); Mean Corpuscular Volume 88 fL (80-100); Monocytes # (Auto) 0.5 Thou/mm3 (0.0-0.8); Monocytes % (Auto) 9 % (0-12); Neutrophils # (Auto) 3.9 Thou/mm3 (1.8-7.7); Neutrophils % (Auto) 66 % (37-80); Nucleated Red Blood Cell # 0.00 Thou/mm3 (0.00-0.00); Nucleated Red Blood Cell % 0 /100 WBC (0); Platelet Count 303 Thou/mm3 (140-440); RDW Standard Deviation 38.3 fL (36.4-46.3); Red Blood Count 4.85 Miln/mm3 (4.00-5.20); White Blood Count 5.9 Thou/mm3 (3.6-11.0)
[2025-05-04 10:44] LABS: B-Type Natriuretic Peptide < 20 pg/mL (0-100)
[2025-05-04 10:50] LABS: INR 0.9 (0.9-1.3); Partial Thromboplastin Time 26.3 Seconds (22.0-36.0); Prothrombin Time 9.9 Seconds (9.0-12.2)
--- NOTE | 2025-05-04 10:51 | PD.EDEYE ---
ED Eye Problem RME/HPI General Chief complaint: Chest Pain Stated complaint: CHEST PAIN,BLURRED VISION R) EYE,HEART FLUTTERING Time Seen by Provider: 05/04/25 09:46 Arrival date/time: 05/04/25 09:25 RME / HPI RME / HPI Narrative: 50 year old female presents to the ED for evaluation of vision changes beginning suddenly at ~ 7:50-8:00 am today. Reports this morning she felt at her usual state of health and was working with a client. States after sitting down to chart on the computer, she noticed her vision had changed. Reports there to be empty spots in the center of her vision with a blue light just above said empty spots, though only noted to be on the right eye. States if she covered her right eye the left eye would have blurred vision. Accompanied by a sudden onset of headache located to the right side and room-spinning dizziness. States the blue light she was seeing resolved after about 1 hour though vision is still blurred and headache persists. Patient mentioned for the last 6 months on/off she will see colors first thing after waking up followed by nausea and room-spinning dizziness. Also reports for the last several years she has had unexplained on/off low-grade fevers, body aches, episodes of shortness of breath, and difficulty swallowing. States she is being following by a survey research manager in [place], [place] and are testing her for autoimmune disorders. Denies use of corrective lenses. Related Data Home Medications ?Medication ?Instructions ?Recorded ?Confirmed aspirin 325 mg tablet 325 mg PO QDAY #0 tabs 01/26/16 07/15/23 carvedilol 3.125 mg tablet (Coreg) 3.125 mg PO BID #0 tabs 01/26/16 07/15/23 prasugrel HCl 10 mg tablet 10 mg PO QDAY #0 tabs 01/26/16 07/15/23 (Effient) Allergies Allergy/AdvReac Type Severity Reaction Status Date / Time atorvastatin Allergy Intermediate Anaphylaxis Verified 05/04/25 09:27 Review of Systems Review of Systems Systems Reviewed: All systems reviewed, normal except as documented Past Medical History Past Medical History CARDIAC: Positive Cardiac Disorders, Myocardial Infarction, Heart Murmur, Coronary Artery Disease, Hypertension and Hypotension GASTROINTESTINAL: Positive Gastrointestinal Disorders and Gall Bladder Disease GENITOURINARY: Positive Genitourinary Disorders (right kidney scarring) REPRODUCTIVE: Positive Breast Cancer (unknown) MUSCULOSKELETAL: Positive Musculoskeletal Disorders and Fibromyalgia ENDOCRINE: Positive Systemic Lupus Erythematosus (2014 but not sure) OTHER HISTORY: Positive Cancer and Breast Cancer (unknown) Surgical History SURGICAL: Positive Coronary Stent Social History SMOKING STATUS: Never smoker SUBSTANCE USE: does not use ED Exam Narrative Physical exam: GENERAL APPEARANCE: alert and oriented x 4, well-developed, well-nourished, appears anxious, slightly tremulous HEENT: Normocephalic, atraumatic; pupils equal, round, reactive to light; EOMI; mucous membranes pink, moist; oropharynx clear NECK: Supple LUNGS: CTABL; no wheezes, no rales, no rhonchi HEART: Tachycardic, regular rhythm; normal S1, S2; no murmurs ABDOMEN: non distended; normal BS; soft, no tenderness, no guarding, no rebound; no masses, no organomegaly, no hernia BACK: no CVA tenderness EXTREMITIES: atraumatic; no edema NEUROLOGIC: awake; alert and oriented x4; cranial nerves II-XII grossly intact; no focal sensory or motor deficits PSYCHIATRIC: appropriate mood and affect SKIN: warm, dry, normal color; no rashes Course Quality Measures none Orders Category Date Time Status Construction Controller NOW Care 05/04/25 09:46 Completed EKG (ED ONLY) *Do not use* NOW Care 05/04/25 09:29 Completed Visual Acuity NOW Care 05/04/25 10:[address] head/brain wo con Stat Exams 05/04/25 10:18 Completed EKG (ED Only) Stat Exams 05/04/25 09:29 Draft XR chest 1V portable Stat Exams 05/04/25 09:46 Completed B-Type Natriuretic Peptide Stat Lab 05/04/25 10:10 Completed CBC Stat Lab 05/04/25 10:10 Completed CRP [C-Reactive Protein] Stat Lab 05/04/25 12:33 Completed Comprehensive Metabolic Panel Stat Lab 05/04/25 10:10 Completed ESR [Sed Rate (ESR)] Stat Lab 05/04/25 12:33 Completed Lipase Stat Lab 05/04/25 10:10 Completed Magnesium Stat Lab 05/04/25 10:10 Completed Partial Thromboplastin Time Stat Lab 05/04/25 10:10 Completed Prothrombin Time with INR Stat Lab 05/04/25 10:10 Completed Troponin I Stat Lab 05/04/25 10:10 Completed LORazepam [Ativan] Med 05/04/25 12:12 Discontinued 1 mg PO X1 ONE Vital Signs Vital signs: Vital Signs Temperature 97.7 F 05/04/25 09:33 Pulse Rate 132 H 05/04/25 09:33 Respiratory Rate 24 H 05/04/25 09:33 Blood Pressure 148/95 H 05/04/25 09:33 Pulse Oximetry (%) 97 05/04/25 09:33 Eye MDM Narrative MDM Narrative:: Heather Beck am scribing for and in the presence of Dr. Chu. 1240: Patient reports her pain and vision has improved, though is still complaining of some blurred vision. Patient remains clinically stable throughout the emergency department visit. We reviewed all the results, analysis, and treatment plans. Patient is amenable to discharge. Strict return precautions were outlined. Procedure: Tonometer Pen Measurement Indication: Vision changes, eye pain Results: OD: 20/95 and 19/95 OS: 18/95 and 20/95 Tolerance: Patient tolerated procedure well, no complications noted Patient data External records reviewed:: [facility] [place] previous records Clinical information provided by:: patient Social determinants that could affect healthcare access:: none Patient has the following chronic illnesses:: No chronic medical hx reported How is presenting disease/condition affected by chronic disease/condition?: no chronic disease Evaluation data The following diagnostics were reviewed and interpreted by me:: lab results, radiology exam(s) and EKG tracing(s) (EKG @ 09:33 AM, interpreted by me, sinus tachycardia, rate 129, no STEMI. ) Lab and/or radiology exams considered but not ordered:: None Interpretation Summary: Ordering Physician: Christina Chu MD Date of Service: 05/04/25 Procedure(s): CT head/brain wo con Accession Number(s): [id number] cc: Dylon Sierra MD; NO PRIMARY/FAMILY,PHYSICIAN; Christina Chu MD~ Examination: CT brain head without contrast. 2-D sagittal coronal reconstructions Date and time of exam: April 04, 2025, 10:47 a.m. INDICATIONS: Onset generalized head pain and blurry vision today CTDI: vol (mGy): 45.9 DLP: (mGycm): 887 Technique: Multiple CT axial sections of the brain have been obtained, 5 mm slice thickness. Contrast has not been administered. 2-D sagittal, coronal reconstructions have been obtained Low dose protocols were performed. One or more of the following dose reduction techniques were used; automated exposure control, adjustment of the mA and/or KV according to patient size, use of iterative reconstruction technique. Findings: No significant ventricular enlargement. Significant right maxillary sinus disease Intra-axial or extra-axial hemorrhage density is not seen. No mass effect or midline shift Basal cisterns are not remarkable. Fourth ventricle is midline. Cranial vault intact. Impression: Negative for acute hemorrhage, mass effect or midline shift If symptoms persist, consider brain MRI MRA without contrast follow-up Dictated By: Dylon Sierra MD Signed By: <Electronically signed by Dylon Sierra MD in OV> 05/04/25 1146 Medications / Prescriptions Medications or Prescriptions considered but not ordered:: None Medication administrations:: Medication Administration History Discontinued Medications Lorazepam (Lorazepam 0.5 Mg Tablet) 1 mg PO X1 ONE Stop: 05/04/25 12:13 Last Admin: 05/04/25 12:28 Dose: Not Given Documented By: VG Non-Admin Reason: Patient Refused See above Consultations Consultation(s) initiated? (list below): No Diagnosis Eye Problem Differential Diagnosis: glaucoma, ruptured globe and other (complex migraine ) Most likely diagnosis given after review of the tests above:: Blurred vision, bilateral Admission Indicated Admission indicated?: not indicated Admission Request Was there a request for admission?: No Disposition Plan Disposition Plan: Discharge Discharge Attestation Discharge Attestation: The patient and all family members were given an opportunity to ask questions and understood the discharge instructions. Discharge instructions specifically effects, indications for sooner follow up or return to the emergency department, and the expected course of current diagnosis. Patient condition: Stable Discharge Plan Plan Patient Disposition: HOME (Self Care) Prescriptions/Referrals Prescriptions/Med Rec: No Action aspirin 325 MG tablet 325 mg PO QDAY Qty: 0 carvedilol [Coreg] 3.125 MG tablet 3.125 mg PO BID Qty: 0 prasugrel HCl [Effient] 10 MG tablet 10 mg PO QDAY Qty: 0 Referrals: No Primary/Family,Physician [Primary Care Provider] - In 1 week Problem List Clinical Impression: Blurred vision, bilateral Patient/Caregiver Discharge Instructions Education Materials: ED Blurred Vision Additional Instructions: Follow up with your eye doctor for vision and eye check Print Language: Welsh Stand Alone Forms: Catherine Award Info., Patient Portal Info Letter
[2025-05-04 12:05] LABS: Alanine Aminotransferase 8 U/L (10-49); Albumin, Serum 4.8 gm/dL (3.5-5.0); Alkaline Phosphatase 75 U/L (46-116); Anion Gap 10 (7-16); Aspartate Amino Transferase 14 U/L (0-34); BUN/Creatinine Ratio 12 Ratio (12-20); Bilirubin,Total 0.6 mg/dL (0.3-1.2); Blood Urea Nitrogen 11 mg/dL (9-23); Calcium 9.5 mg/dL (8.3-10.6); Calcium (Corrected) 9.5 mg/dL (8.5-10.1); Carbon Dioxide 26.0 mMol/L (20.0-31.0); Chloride 105 mMol/L (98-107); Creatinine (Component) 0.9 mg/dL (0.6-1.3); Estimated Creatinine Clearance 79.8 mL/min (>60); Glucose 106 mg/dL (74-106); Lipase 41 U/L (12-53); Magnesium 1.9 mg/dL (1.6-2.6); Osmolality,Calculated 280 (275-295); Potassium 4.1 mMol/L (3.4-5.1); Sodium 141 mMol/L (136-145); Troponin I < 0.002 ng/mL (0.0-0.045); eGFR > 60 See Note
[2025-05-04 12:53] LABS: Albumin/Globulin Ratio 1.5 (1.2-2.2); Globulin 3.2 gm/dL (2.3-3.5); Total Protein 8.0 gm/dL (5.7-8.2)
[2025-05-04 12:59] LABS: Sed Rate (ESR) 29 mm/hr (0-20)
[2025-05-04 13:13] LABS: C-Reactive Protein < 0.5 mg/dL (0.0-0.9)
[2025-05-04 13:18] VITALS: BP 133/98; PULSE 89; RESP 20; TEMP 36.7; O2SAT 97
== END 2025-05-04 13:21 | disposition home or self-care (01) ==
PROVIDERS: Emergency Provider Emergency Medicine
DX: I49.8 Other specified cardiac arrhythmias (principal); H53.8 Other visual disturbances; R51.9 Headache, unspecified; R00.0 Tachycardia, unspecified; I25.2 Old myocardial infarction; I10 Essential (primary) hypertension; I25.10 Atherosclerotic heart disease of native coronary artery without angina pectoris; Z95.5 Presence of coronary angioplasty implant and graft
CPT/HCPCS: 36415; 70450; 71045; 80053; 83690; 83735; 83880; 84484; 85025; 85610; 85652; 85730; 86140; 93005; 99284

== ENCOUNTER → 2025-05-13 | Outpatient (CLI) | payer BC, SELFPAY ==
--- NOTE | 2025-05-13 10:30 | XR_ITS ---
Examination: Breast ultrasound complete, bilateral Date and time of exam: May 13, 2025, 1039 hours INDICATIONS: Bilateral breast sonography January 24, 2024 3:00 nodule left breast 6 x 5 mm Technique: Real-time grayscale ultrasonographic imaging bilateral breasts, including all 4 quadrants as well as nipple retroareolar and axillary regions. Findings: Sonographic images right breast Benign cysts, the largest in the 9 o'clock position 12 x 11 mm No solid nodules Sonographic images left breast 2:00 nodule circumscribed 4 x 3 mm 3:00 nodule circumscribed 6 x 6 mm 4:00 cyst 14 x 14 mm 9:00 cyst 10 x 7 mm Smaller cysts IMPRESSION: BI-RADS Category 3: Probably benign findings Recommend 1 additional 6-month left breast sonogram follow-up to document stability of solid nodules described above
--- NOTE | 2025-05-13 11:30 | XR_ITS ---
Examination: Diagnostic digital mammography, bilateral Computer aided detection 3-D breast Tomosynthesis, bilateral Date and time of exam: 05/13/2025, 10:26 a.m. Comparisons: November 2023, January 2024 Indications: Follow-up probably benign inner right breast mass. Technique: Nonmagnified MLO, CC views of the breasts to been obtained, reconstructed from 3-D Tomosynthesis images. R2 computer aided detection program utilized for evaluation of suspicious masses and/or abnormal calcifications. 3-D Tomosynthesis images obtained. Findings: The breasts are heterogeneously dense, which may obscure small masses. Multiple bilateral partially obscured oval masses. Otherwise no evidence of abnormal masses or suspicious calcifications. Impression: Multiple stable benign-appearing oval circumscribed masses bilaterally. Today's ultrasound exam demonstrated multiple probably benign masses. Overall findings are probably benign. Recommend 6-month bilateral mammogram ultrasound follow-up exam. BI-RADS category 3: Probably benign, short term follow-up
== END | disposition home or self-care (01) ==
LOC: CDIM 10:10
PROVIDERS: PCP Family Medicine; Referring Provider Nurse Practitioner; Visit Provider Nurse Practitioner
DX: R92.333 Mammographic heterogeneous density, bilateral breasts (principal); R92.8 Other abnormal and inconclusive findings on diagnostic imaging of breast; N63.25 Unspecified lump in the left breast, overlapping quadrants; N63.21 Unspecified lump in the left breast, upper outer quadrant
CPT/HCPCS: 76641; 77062; 77066; G0279